=== PATIENT | female | born 1960 ===

== ENCOUNTER 2018-08-30 08:07 | Day surgery (SDC) | payer MEDICARE, MEDICAID ==
[2018-08-30 08:41] VITALS: TEMP 97.8; O2SAT 100
[2018-08-30 08:42] VITALS: BMI 42.3
[2018-08-30] MEDS ORDERED: Midazolam 2 MG/2 ML VIAL ONE (10:11)
[2018-08-30] MEDS ORDERED: Propofol 10 mg/ml Inj (20 ML) ONE (10:11)
[2018-08-30] MEDS ORDERED: Lactated Ringer's 500 ML IV SCH (10:15)
[2018-08-30 11:32] VITALS: RESP 16
[2018-08-30 12:18] VITALS: BP 178/72; PULSE 62
== END 2018-08-30 12:10 | disposition home or self-care (01) ==
LOC: C.ENDO 08:07
PROVIDERS: ATTEND Internal Medicine Gastroenterology
DX: Z86.010 Personal history of colon polyps (principal); R10.13 Epigastric pain; K44.9 Diaphragmatic hernia without obstruction or gangrene; K29.70 Gastritis, unspecified, without bleeding; Z12.81 Encounter for screening for malignant neoplasm of oral cavity; D12.2 Benign neoplasm of ascending colon; D12.0 Benign neoplasm of cecum
CPT/HCPCS: 43239; 45380; 82948; 88305; J2250; J2704; J7120